=== PATIENT | male | born 1965 | race Hispanic/Latino ===

== ENCOUNTER 2021-01-14 03:07 | Emergency (ER) | payer OTHER ==
[~2021-01-14] VITALS: Ht 167.6 cm; Wt 106.0 kg
[~2021-01-14 03:07] MED LIST: NO HOME MEDS; PRILOSEC20 MG OR
[2021-01-14 04:03] LABS: HEMATOCRIT 30.4 % (39.0-50.0); HEMOGLOBIN 10.9 g/dl (14.0-18.0); IMMATURE GRANULOCYTES 0.3 % (0.0-5.0); MEAN CELL VOLUME 97.7 fL CALC (80.0-100.0); MEAN CORPUSCULAR HGB CONC 35.9 g/dL CAL (32.0-36.0); NEUT# 6.03 thou/uL (1.82-7.42); RED BLOOD COUNT 3.11 mill/uL (4.70-6.10); RED CELL DISTRI WIDTH 13.1 % (11.5-15.5)
[2021-01-14 04:19] LABS: ALBUMIN 2.9 g/dL (3.2-5.0); ALKALINE PHOSPHATASE 117 u/l (38-126); AMYLASE 52 u/l (30-110); ANION GAP 13 (6-22 (CALC)); BILIRUBIN, TOTAL 2.7 mg/dL (0.0-1.4); BUN 19 mg/dL (9-20); BUN/CREATININE RATIO 32 (12-20 (CALC)); CARBON DIOXIDE 25 mmol/l (22-30); CHLORIDE 106 mmol/l (95-108); CREATININE 0.6 mg/dL (0.7-1.3); GFR > 60 ML/MIN (>=60 (CALC)); GFR FOR AFR.AMER. > 60 ML/MIN (>=60 (CALC)); LIPASE 179 u/l (23-300); POTASSIUM 3.6 mmol/l (3.5-5.1); SGOT/AST 174 u/l (17-59); SODIUM 140 mmol/l (137-146); TOTAL PROTEIN 6.8 g/dL (6.3-8.2)
[2021-01-14 05:20] LABS: HEMATOCRIT 26.8 % (39.0-50.0); HEMOGLOBIN 9.4 g/dl (14.0-18.0)
[2021-01-14 06:15] VITALS: BP 107/55
[2021-01-14 07:17] VITALS: BP 118/60
== END 2021-01-14 07:18 | disposition short-term general hospital (02) | DRG 379 ==
LOC: ED 03:07
PROVIDERS: Emergency Medicine
PROC: 30233N1 Transfusion of Nonautologous Red Blood Cells into Peripheral Vein, Percutaneous Approach (ICD-10-PCS; principal; 2021-01-14)
DX: K92.0 Hematemesis (principal); F10.129 Alcohol abuse with intoxication, unspecified; F17.200 Nicotine dependence, unspecified, uncomplicated
CPT/HCPCS: J2354; P9016; Q9967; S0164

== ENCOUNTER 2023-04-14 16:57 | Inpatient (IN) | payer SELFPAY ==
[~2023-04-14] VITALS: Ht 167.6 cm; Wt 93.4 kg
[2023-04-14] VITALS (14 sets, daily range): BP systolic 98–133; BP diastolic 47–89
--- NOTE | 2023-04-14 17:00 | NUR ---
PT AMBULATED TO ROOM 13 FOR TRIAGE WITH A SLOW GAIT. PT APPEARS TO BE CONFUSED, HAVING SOME DIFFICULTY FOLLOWING INSTRUCTIONS. FACIAL DROOPING IS NOTED. PT'S CHIEF COMPLAINT ON ARRIVAL WAS ABDOMINAL PAIN. PT HAS A HX OF GI BLEED. MELVIN IN ROOM WITH PT.
[2023-04-14 18:12] LABS: BASO% 1.3 % (0-3); HEMOGLOBIN 11.2 g/dl (14.0-18.0); IMMATURE GRANULOCYTES 0.2 % (0.0-5.0); LYMPH% 30.7 % (15-41); MEAN CELL VOLUME 95.8 fL CALC (80.0-100.0); MEAN CORPUSCULAR HGB 31.3 pG CALC (26.0-32.0); MEAN CORPUSCULAR HGB CONC 32.7 g/dL CAL (32.0-36.0); MONO% 16.9 % (2-13); NEUT# 2.83 thou/uL (1.82-7.42); NEUT% 46.9 % (42-76); RED BLOOD COUNT 3.58 mill/uL (4.70-6.10); RED CELL DISTRI WIDTH 15.6 % (11.5-15.5)
[2023-04-14 18:14] LABS: HEMATOCRIT 34.3 % (39.0-50.0)
--- NOTE | 2023-04-14 18:20 | NUR ---
PT'S FAMILY AT BEDSIDE STATES THAT PT HAS A HX OF LIVER FAILURE AND 4 MONTHS AGO WAS SEEN IN [place] FOR LIVER ISSUES. PT'S FAMILY STATES THAT STATES THAT THE LIVER FAILURE CAUSED CONFUSION.
[2023-04-14 18:21] LABS: ALBUMIN 2.8 g/dL (3.2-5.0); ALKALINE PHOSPHATASE 127 u/l (38-126); AMYLASE 94 u/l (30-110); ANION GAP 8 (6-22 (CALC)); BUN 7 mg/dL (9-20); BUN/CREATININE RATIO 10 (12-20 (CALC)); CALCULATED LDLCHOLESTEROL 76 mg/dL (62-129 (CALC)); CARBON DIOXIDE 22 mmol/l (22-30); CHLORIDE 113 mmol/l (95-108); CHOLESTEROL HDL RATIO 3.6 (<4.4 (CALC)); CREATININE 0.7 mg/dL (0.7-1.3); GFR FOR AFR.AMER. > 60 ML/MIN (>=60 (CALC)); GFR OTHER RACES > 60 ML/MIN (>=60 (CALC)); HDL CHOLESTEROL 36 mg/dL (39.0-59.0); POTASSIUM 3.2 mmol/l (3.5-5.1); SGOT/AST 58 u/l (17-59); SODIUM 139 mmol/l (137-146); TOTAL CHOLESTEROL 130 mg/dl (0-199); TOTAL TRIGLYCERIDES 87 mg/dl (0-149); VLDL CHOLESTROL 17 mg/dl (8-62 (CALC))
[2023-04-14] MEDS ORDERED: LASIX 40 MG TAB40 MG PO (18:26)
[2023-04-14] MEDS ORDERED: FUROSEMIDE20 MG PO (18:26)
[2023-04-14] MEDS ORDERED: LEXAPRO10 MG PO (18:26)
[2023-04-14] MEDS ORDERED: FOLIC ACID1 MG PO (18:27)
[2023-04-14] MEDS ORDERED: KLONOPIN2 MG PO (18:27)
[2023-04-14] MEDS ORDERED: PROTONIX40 M2 PO (18:27)
[2023-04-14] MEDS ORDERED: KLOR-CON M1010 MEQ PO (18:28)
[2023-04-14 18:30] LABS: BILIRUBIN, TOTAL 1.3 mg/dL (0.2-1.3)
[2023-04-14 18:39] LABS: INTERNATIONAL NORMALIZED RATIO 1.2 RATIO (0.7-1.3); PROTHROMBIN TIME 12.1 SECONDS (9.0-12.5)
--- NOTE | 2023-04-14 18:46 | NUR ---
PT'S COUSIN JACINTO,, HER NUMBER IS [phone].
--- NOTE | 2023-04-14 19:00 | NUR ---
CARE ASSUMED FOR PT AT THIS TIME. DAUGHTERS AT BEDSIDE. VSS; COMPLETING NEURO CHECK NOW.
--- NOTE | 2023-04-14 19:00 | NUR ---
PT ABLE TO USE URINAL; UA COLLECTED AT THIS TIME
--- NOTE | 2023-04-14 19:30 | NUR ---
DAUGHTERS GOING TO STAY WITH PT UNTIL MOTHER GETS HERE AFTER SHE GETS OFF WORK; LILIBETH IS DAUGHTER WHO CAN SPEAK AND TRANSLATE KOREAN. ANNEL, GERDA.
--- NOTE | 2023-04-14 19:40 | NUR ---
BED ASSIGNMENT GIVEN - CALLED WAITING FOR RN TO RETURN CALL
--- NOTE | 2023-04-14 19:55 | NUR ---
MS CALLED FOR REPORT - PT BEING TX TO 280 WITH DAUGHTERS AT BEDSIDE; DAUGHTERS REPORT THEIR MOTHER IS ON THE WAY. VSS; NAD.
[2023-04-14 20:03] LABS: URINE BILIRUBIN - DIPSTICK Negative (NEGATIVE); URINE BLOOD DIPSTICK Small (NEGATIVE); URINE GLUCOSE - DIPSTICK 250 mg/dL (NEGATIVE); URINE KETONE Negative (NEGATIVE); URINE LEUK ESTERASE Negative (NEGATIVE); URINE NITRITE - DIPSTICK Negative (Negative); URINE PROTEIN - DIPSTICK Negative (NEG-TRACE); URINE SPECIFIC GRAVITY 1.015
[2023-04-14 20:04] LABS: URINE COLOR Yellow
[2023-04-14 20:09] LABS: URINE WBC 0-2 WBC/hpf (0-5)
--- NOTE | 2023-04-14 20:19 | NUR ---
PATIENT ARRIVED TO FLOOR VIA STRETCHER ACCOMPANIED BY Kwesi OCAMPO RN. ASSISTED TO SCALE X2, PATIENT ASSITED BACK TO STRETCHER AND WALKED TO BED. PATIENT ALERT AND ORIENTED TO SELF AT THIS TIME. KOSOVAN SPEAKING ONLY. RIGHT SIDED FACIAL DROOP NOTED. PATIENT ABLE TO LIFT BOTH ARMS AND LEGS BUT LEFT SIDE DRIFTS, DOES NOT HIT BED. ABLE TO ANSWER QUESTIONS APPORPIRATELY, ALTHOUGH RESPOSES LAG AND ARE GARBLED. STATES THAT THIS IS PATIENTS BASELINE ON AND OFF. PATIENT IS USUALLY ALERT AND ORIENTED X3 ABLE TO WALK AND SPEAK CLEARLY, PER THIS HAS HAPPENED ON AND OFF SINCE HE HAD A SMIMILAR EPISODE 4 YEARS AGO. / PATIENT UPDATED ON PLAN OF CARE, CALL LIGHT AND BEDSIDE TABLE WITHIN REACH. BED ALARM ON FOR SAFETY.
--- NOTE | 2023-04-14 20:59 | NUR ---
PHARMACY CONSULT PLACED. AT BEDSIDE STATES SHE IS UNSURE OF WHAT THE PATIENT TAKES, IS ONLY AWARE OF HIM TAKING A PILL TO DECREASE THE WATER IN HIS LOWER EXTREMITIES. PATIENT RECENLTY CAME FROM [place] WHERE HE WAS RESIDING, STATES SHE REALLY DOES NOT KNOW WHAT THE IS UP TO DURING THE DAY BECAUSE SHE WORKS SO MUCH, PATIENT HAS A RELATIVE WHO LIVES NEARBY THAT KEEPS AND EYE ON HIM. PATIENT REPORTS LAST BM WAS A WEEK AGO, UNSURE IF THIS IS TRUE. PATIENT IN BED EATING HIS DINNER, NO CHOCKING OR DIFFUCULTY SWALLOWING NOTED AT THIS TIME.
--- NOTE | 2023-04-14 21:04 | NUR ---
DR BARRIENTOS MADE AWARE THAT PATIENT HAS NO ORDERS FOR MEDICATION, LABS IMAGINGING AND INTERVENTIONS.
[2023-04-15] VITALS (10 sets, daily range): BP systolic 95–121; BP diastolic 47–77
--- NOTE | 2023-04-15 | NUR ---
PATIENT RESTING IN BED. NO APPARENT DISTRESS NOTED. PATIENT QUESTIONING WHERE HE IS, REORITED TO TIME AND PLACE. NO FURTHER CONCERNS AT THIS TIME. EPHRAIM HOSE REMOVED PER PT REQUEST. CALL LIGHT AND BEDSIDE TABLE WITHIN REACH. BED ALARM ON FOR SAFETY/.
--- NOTE | 2023-04-15 04:29 | NUR ---
PATIENT ASSISTED TO THE BATHROOM AT THIS TIME. ALERT AND ORIENTED X3 THIS MORNING, PATIENT ABLE TO WALK TO BATHROOM WITH STANDBY ASSITANCE. ORIENTED TO CALL LIGHT SYSTEM IN BATHROOM.
--- NOTE | 2023-04-15 04:51 | NUR ---
PROFESSOR OF GENETICS AT BEDSIDE OBTANING MORNING LABS.
[2023-04-15 05:37] LABS: HEMATOCRIT 33.7 % (39.0-50.0); HEMOGLOBIN 11.2 g/dl (14.0-18.0); MEAN CELL VOLUME 96.8 fL CALC (80.0-100.0); MEAN CORPUSCULAR HGB 32.2 pG CALC (26.0-32.0); MEAN CORPUSCULAR HGB CONC 33.2 g/dL CAL (32.0-36.0); RED BLOOD COUNT 3.48 mill/uL (4.70-6.10); RED CELL DISTRI WIDTH 15.4 % (11.5-15.5)
[2023-04-15 05:52] LABS: ALBUMIN 2.5 g/dL (3.2-5.0); ALKALINE PHOSPHATASE 105 u/l (38-126); ANION GAP 5 (6-22 (CALC)); BUN 8 mg/dL (9-20); BUN/CREATININE RATIO 11 (12-20 (CALC)); CARBON DIOXIDE 23 mmol/l (22-30); CHLORIDE 115 mmol/l (95-108); CREATININE 0.7 mg/dL (0.7-1.3); GFR FOR AFR.AMER. > 60 ML/MIN (>=60 (CALC)); GFR OTHER RACES > 60 ML/MIN (>=60 (CALC)); POTASSIUM 3.4 mmol/l (3.5-5.1); SGOT/AST 56 u/l (17-59); SODIUM 140 mmol/l (137-146); TOTAL PROTEIN 6.5 g/dL (6.3-8.2)
[2023-04-15 05:53] LABS: BILIRUBIN, TOTAL 2.2 mg/dL (0.2-1.3)
--- NOTE | 2023-04-15 07:31 | NUR ---
RECEIVE REPORT FROM FIONA LOPEZ.
--- NOTE | 2023-04-15 08:07 | NUR ---
ALERT AND ORIENTED PATIENT X3. 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 TELE MONITOR ON. ANY PHYSISCAAL DEFICIT AT THIS TIME. PT IS EDUCATED ABOUD MEDICATIONS AND NURSING PLAN FOR TODAY. PT REFER UNDERSTAND. SAFETY AND FALL PRECAUTONS IN PLACE. BED ALARM ON. CALL LIGHT WITHIN IN REACH.
[2023-04-15] MEDS ORDERED: VITAMIN B-121000 MCG (09:10)
[2023-04-15] MEDS ORDERED: ALDACTONE25 MG (10:23)
--- NOTE | 2023-04-15 12:16 | NUR ---
PATIENT RESTGING IN BED AT THIS TIME. TELE MONITOR IN PLACE. ANY PAIN AT THIS TIME. SALINE LOCK TO RIGHT AC INTACT. CALL LIGHT IN REACH. WILL CONT TO MONITOR.
--- NOTE | 2023-04-15 18:41 | NUR ---
REPORT RECEIVED FROM Sabino NICHOLAS RN
--- NOTE | 2023-04-15 19:15 | NUR ---
PATIENT RESTING IN BED, EYES CLOSED, CALL LIGHT IN HAND. DAUGHTER AT BEDSIDE. NO APPARENT DISTRESS AT THIS TIME. CALL LIGHT AND BEDSIDE TABLE WITHIN REACH. BED ALARM ON FOR SAFETY.
--- NOTE | 2023-04-15 20:25 | NUR ---
PATIENT HAS NO DEFECITS AT THIS TIME. ALERT AND ORIENTED X3. NEG NIH AND MEND. PATIENT DOES HAVE COGNITIVE LIMITATIONS AND HAS TROUBLE PROCESSING DIRECTIONS, PATIETN REQUIRES A BIT OF TIME AND IS ABLE TO FOLLOW SAID DIRECTIONS. PER DAUGHTER THIS IS PATIENTS BASELINE.
--- NOTE | 2023-04-16 | NUR ---
PATIENT SET OFF BED ALARM AND HAD A SMALL AMOUNT OF LIQUID INCONTINENT STOOL. ASSITED TO BATHROOM.
[2023-04-16 00:01] VITALS: BP 116/74
[2023-04-16 00:05] VITALS: BP 116/74
--- NOTE | 2023-04-16 04:23 | NUR ---
PATIENT RESTING IN BED, RESPIRATIONS EVEN AND UNLABORED. CALL LIGHT AND BEDSIDE TABLE WITHIN REACH. BED ALARM ON FOR SAFETY.
--- NOTE | 2023-04-16 04:58 | NUR ---
LAB AT BEDSIDE OBTAINING MORNING LABS
[2023-04-16 05:05] VITALS: BP 119/77
[2023-04-16 05:51] LABS: BASO% 0.8 % (0-3); EOS% 4.3 % (0-8); HEMATOCRIT 35.1 % (39.0-50.0); HEMOGLOBIN 11.5 g/dl (14.0-18.0); IMMATURE GRANULOCYTES 0.2 % (0.0-5.0); MEAN CELL VOLUME 95.6 fL CALC (80.0-100.0); MEAN CORPUSCULAR HGB 31.3 pG CALC (26.0-32.0); MEAN CORPUSCULAR HGB CONC 32.8 g/dL CAL (32.0-36.0); MONO% 14.6 % (2-13); NEUT# 2.69 thou/uL (1.82-7.42); NEUT% 43.1 % (42-76); RED BLOOD COUNT 3.67 mill/uL (4.70-6.10); RED CELL DISTRI WIDTH 15.2 % (11.5-15.5)
[2023-04-16 06:04] LABS: ALBUMIN 2.6 g/dL (3.2-5.0); ALKALINE PHOSPHATASE 105 u/l (38-126); ANION GAP 9 (6-22 (CALC)); BILIRUBIN, TOTAL 2.2 mg/dL (0.2-1.3); BUN 9 mg/dL (9-20); BUN/CREATININE RATIO 12 (12-20 (CALC)); CARBON DIOXIDE 20 mmol/l (22-30); CHLORIDE 113 mmol/l (95-108); CREATININE 0.8 mg/dL (0.7-1.3); GFR FOR AFR.AMER. > 60 ML/MIN (>=60 (CALC)); GFR OTHER RACES > 60 ML/MIN (>=60 (CALC)); MAGNESIUM 1.5 mg/dL (1.6-2.3); POTASSIUM 3.4 mmol/l (3.5-5.1); SGOT/AST 56 u/l (17-59); SODIUM 139 mmol/l (137-146); TOTAL PROTEIN 6.8 g/dL (6.3-8.2)
[2023-04-16 07:28] VITALS: BP 116/78
--- NOTE | 2023-04-16 08:00 | NUR ---
PATIENT RESTING HELPED WITH BREAKFAST TRAY SETUP. PATIENT STATED HE WAS AT BASELINE WITH ALERTNESS AND MOBILITY. PATIENT REPORTS NO PAIN AT THIS TIME. PATIENT EXPRESSES NO OTHER NEEDS AT THIS TIME. CALL LIGHT WITHIN REACH.
[2023-04-16] MEDS ORDERED: ALDACTONE25 MG PO (10:18)
[2023-04-16] MEDS ORDERED: LACTULOSE10 GM/15 M PO (10:19)
[2023-04-16] MEDS ORDERED: KLOR-CON M1010 MEQ PO (10:19)
[2023-04-16] MEDS ORDERED: FUROSEMIDE20 MG PO (10:20)
[2023-04-16 11:33] VITALS: BP 118/77
--- NOTE | 2023-04-16 13:54 | NUR ---
Discharge instructions given. Patient verbalizes understanding of same. Discharged in stable condition via Wheelchair to Home with family. All belongings sent with pt.
== END 2023-04-16 13:54 | disposition home or self-care (01) | DRG 443 ==
LOC: ED 16:57 → MS2 18:51
PROVIDERS: Family Medicine; Nurse Practitioner Family; ADMIT Student in an Organized Health Care Education/Training Program; ATTEND Student in an Organized Health Care Education/Training Program
DX: K76.82 Hepatic encephalopathy (principal); K70.30 Alcoholic cirrhosis of liver without ascites; K80.20 Calculus of gallbladder without cholecystitis without obstruction; I86.4 Gastric varices; F10.10 Alcohol abuse, uncomplicated; F17.210 Nicotine dependence, cigarettes, uncomplicated; T50.916A Underdosing of multiple unspecified drugs, medicaments and biological substances, initial encounter; Z91.128 Patient's intentional underdosing of medication regimen for other reason; Z87.19 Personal history of other diseases of the digestive system
CPT/HCPCS: J1650; J3475